=== PATIENT | male | born 1960 | race African-American/Black ===

== ENCOUNTER → 2023-02-18 11:18 | Outpatient (REF) | payer MEDICAID, SELFPAY ==
--- NOTE | 2023-02-18 11:28 | ECG_ITS ---
Test Reason : 251.81 Blood Pressure : / mmHG Vent. Rate : 074 BPM Atrial Rate : 074 BPM P-R Int : 180 ms QRS Dur : 088 ms QT Int : 372 ms P-R-T Axes : 059 046 064 degrees QTc Int : 412 ms Normal sinus rhythm Normal ECG No previous ECGs available Referred By: KONSTANTIN MORIN Electronically Signed By:SENIA MORSE
== END ==
LOC: HO.CARD 11:18
PROVIDERS: Visit Provider Nurse Practitioner Psychiatric/Mental Health
DX: Z79.899 Other long term (current) drug therapy (principal)
CPT/HCPCS: 93005

== ENCOUNTER 2024-01-26 13:32 | Emergency (ER) | payer MEDICAID, SELFPAY ==
--- NOTE | ~2024-01-26 | CT_ITS ---
EXAMINATION: CT ABDOMEN AND PELVIS WITHOUT CONTRAST CLINICAL INFORMATION: Questionable umbilical hernia COMPARISON: None available. TECHNIQUE: Multidetector volumetric imaging was performed from the superior aspect of the liver through the pubic symphysis. Sagittal and coronal reformatted images were obtained on the technologist's workstation. This CT examination was performed using dose optimization techniques as appropriate, variously including the following: *Automated exposure control *Adjustment of mA and/or kV according to patient size (this includes techniques or standardized protocols for targeted exams where dose is matched to indication/reason for exam; i.e. extremities or head) *Use of iterative reconstruction technique DLP: 270 mGy-cm FINDINGS: LUNG BASES: The visualized lung bases are unremarkable. LIVER, GALLBLADDER, AND BILIARY TREE: Segment 4A hepatic cyst measuring 9 mm. Gallbladder under distended. PANCREAS: Unremarkable. SPLEEN: Unremarkable. ADRENAL GLANDS: Unremarkable. KIDNEYS AND URETERS: The kidneys are normal in size, shape, and attenuation. No hydronephrosis, hydroureter, or calculi seen. No perinephric stranding. BLADDER: Unremarkable. GASTROINTESTINAL TRACT: Debris-filled gastric distention. No small bowel obstruction. Moderate to severe degree of colonic stool burden. ABDOMINAL WALL: Small fat-containing supraumbilical hernia measuring 1.8 x 0.7 x 2.2 cm. LYMPH NODES: Normal. VASCULAR: Aortoiliac calcifications. PELVIC VISCERA: Unremarkable. OSSEOUS STRUCTURES: Unremarkable. CT/CT abdomen pelvis wo IV con IMPRESSION: Supraumbilical fat-containing hernia measuring 1.8 x 0.7 x 2.2 cm. Fleischner guidelines were followed. Electronically signed by: Akhil Clark DO 01/26/2024 09:17 PM EDT
--- NOTE | ~2024-01-26 | CT_ITS ---
EXAMINATION: CT CERVICAL SPINE WITHOUT CONTRAST CLINICAL INFORMATION: Fall with head strike COMPARISON: None TECHNIQUE: Multidetector CT of the cervical spine was performed without intravenous contrast. Reformatted axial, coronal and sagittal images were reviewed. This CT examination was performed using dose optimization techniques as appropriate, variously including the following: *Automated exposure control *Adjustment of mA and/or kV according to patient size (this includes techniques or standardized protocols for targeted exams where dose is matched to indication/reason for exam; i.e. extremities or head) *Use of iterative reconstruction technique DLP: 1157 mGy-cm FINDINGS: There is approximately 5 mm anterolisthesis of C2 on C3 and 4 mm anterolisthesis of C3 on C4. Multiple additional areas of spondylosis is seen throughout the cervical spine to varying degrees. Multilevel endplate sclerosis and subchondral cystic changes predominantly from C4 to T1 related to degenerative changes. Multilevel uncovertebral head pressure and the resultant varying degrees of neural foraminal stenosis, which is worst at C4-5 and C5-6. No traumatic fracture of the cervical spine. There is no abnormal widening of the predental space, separation of the lateral masses of C1 or facet joint distraction. Paraseptal emphysema at the lung apices. CT/CT cervical spine wo IV con IMPRESSION: Approximately 5 mm anterolisthesis of C2 on C3 and 4 mm anterolisthesis of C3 on C4. Given the presence of spondylolisthesis at additional cervical levels, this is likely degenerative in etiology. Less likely to be traumatic, however ligamentous injury could present this way. No acute fractures are identified. If there is concern for ligamentous injury and/or instability on physical exam, recommend further evaluation with MRI cervical spine. Electronically signed by: Akhil Clark DO 01/26/2024 09:28 PM EDT
--- NOTE | ~2024-01-26 | CT_ITS ---
EXAMINATION: CT HEAD WITHOUT CONTRAST CLINICAL INFORMATION: Fall, right frontal head strike COMPARISON: None available. TECHNIQUE: Contiguous axial imaging was performed from the skull base to vertex without intravenous administration of contrast. This CT examination was performed using dose optimization techniques as appropriate, variously including the following: *Automated exposure control *Adjustment of mA and/or kV according to patient size (this includes techniques or standardized protocols for targeted exams where dose is matched to indication/reason for exam; i.e. extremities or head) *Use of iterative reconstruction technique DLP: CT mGy-cm FINDINGS: CT examination of the brain shows age-related involutional changes with prominence of the ventricles and sulci. Periventricular white matter hypodensities are evident, likely on the basis of chronic microvascular ischemic disease. No acute hemorrhage, mass effect or shift is evident. In the posterior fossa, the brainstem, cerebellum and fourth ventricle are unremarkable. The orbits and bony calvarium are intact. Mild right sphenoid and right frontal sinus mucosal thickening is noted. CT/CT head/brain wo IV con IMPRESSION: 1. Mild Age-related involutional changes and microvascular disease. 2. No acute hemorrhage, mass effect, shift or acute intracranial pathology. Electronically signed by: Roberto Mayo MD 01/26/2024 08:25 PM EDT
--- NOTE | ~2024-01-26 | XR_ITS ---
EXAMINATION: XR CHEST CLINICAL INFORMATION: Failure to thrive COMPARISON: None available. TECHNIQUE: 2 views of the chest were obtained. FINDINGS: The lungs are adequately expanded. No focal consolidation. No pleural effusions, edema or pneumothorax. The cardiac mediastinal silhouette is within normal limits. Diffuse osteopenia limiting evaluation of osseous structures. Lucency within the left upper quadrant likely correlating gaseous distention of the colon. XR/XR chest 2V IMPRESSION: No acute pulmonary disease. Electronically signed by: Dinesh Marquez MD 01/26/2024 04:54 PM EDT
[2024-01-26 13:51] VITALS: BP 114/75; PULSE 64; RESP 14; TEMP 36.2; O2SAT 99; BMI 16.1
--- NOTE | 2024-01-26 13:55 | ED.GENADULT ---
HPI - General Adult General Chief complaint: General Medical Stated complaint: Hernia, sinus infection Time Seen by Provider: 01/26/24 17:00 History of Present Illness ED Provider: Cecil VERMA narrative: The patient is a 63-year-old male with a history of chronic mental illness who lives at a [facility] home. 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 He is losing a lot of weight. He is falling. He has received most of his primary care through the [facility] in [place] but apparently his primary care doctor left and he has not yet been assigned a new 1. His patient case coordinator who was with him feels that his overall health is deteriorating and she felt that he needed to be assessed. The patient at the moment is denying any concerns. He denies headache, chest pain, shortness of breath, abdominal pain, nausea, vomiting. He indicates that sometimes he thinks he has a hernia around his umbilicus. No reported fever, sweats, chills. The medications that the patient has been taking or apparently amlodipine, tamsulosin, pantoprazole, methadone, quetiapine, lithium, venlafaxine, melatonin, buspirone, and nicotine patch. Last month on December 15 the patient was seen at [facility] following a fall. He had a CT scan of his cervical spine which showed a possible nondisplaced fracture of the inferior articulating facet of C2. He was seen by Neurosurgery and recommendation was for no surgical intervention. The patient was advised to wear an [place] collar. Apparently the patient has not been compliant with wearing the [place] collar because he does not like wearing it. The patient is here with the [facility] patient case coordinator. The patient case coordinator tells me that the patient seems to be having increased urinary frequency and she is worried that the patient might have a urinary tract infection. She also tells me that the patient seems to have very chronically running nose. Related Data Previous Rx's ?Medication ?Instructions ?Recorded cephalexin 500 mg capsule 500 mg PO BID #10 caps 01/26/24 Allergies Allergy/AdvReac Type Severity Reaction Status Date / Time No Known Allergies Allergy Verified 01/26/24 14:01 Review of Systems Review of Systems: Yes all other systems are reviewed and are negative PMFSH Social History Social History Smoked in Last 30 Days: No Use of substances other than those prescribed or required for medical reasons: No Advance Directives: No Advance Directives Information Provided: No Physical Exam ED Vital Signs: Vital Signs - 24 hr 01/26/24 13:51 01/26/24 16:00 01/26/24 18:00 Temperature 97.1 F 98 F 97.7 F Pulse Rate 64 58 59 Respiratory Rate 14 18 20 Blood Pressure 114/75 106/57 L 109/62 Pulse Oximetry 99 98 96 Oxygen Delivery Method Room Air Room Air Room Air 01/26/24 21:43 Temperature 97.7 F Pulse Rate 59 Respiratory Rate 20 Blood Pressure 109/62 Pulse Oximetry 96 Oxygen Delivery Method Room Air BMI result Body Mass Index 16.1 Const Other: The patient is a very slim 63-year-old male. He looks chronically ill. He is awake and alert. He seems to have an unusual demeanor but he does not seem obviously acutely ill. HENMT Other: Face is symmetrical. Mucous membranes are moist. Eyes Other: Pupils are round equal, conjunctivae are clear, extraocular movements are intact. Neck Other: The patient denies midline C-spine tenderness. He denies significant pain with moving his neck. Resp Other: Lungs are fairly clear bilaterally. No wheezes, no crackles. Cardio Rate: regular rate Rhythm: regular rhythm Heart sounds: S1 normal heart sound present and S2 normal heart sound present GI Other: The patient has a very slim abdomen. No significant tenderness. No significant umbilical hernia. Skin Other: Skin is dry and unremarkable. Neuro Other: The patient is awake and alert. He seems reasonably well oriented and fairly coherent. Cranial nerves seem intact. He moves his extremities with intact strength. His gait seems steady. Extrem Other: The patient has what seems to be some mild chronic edema to both lower legs. He has deformities to both of his great toes have varus deformities. Course Course Course Narrative: This is a Rapid Medical Examination (RME) performed by Xiao Colon PA-C in triage. Full HPI, ROS, assessment and treatment plan per primary provider in the Main ED. 63 yo male here for eval of multiple concerns. patient currently resides at living facility where his meds are administered however they do not provide any further medical care. he lives on 2nd floor and pool hall inspector feels as though he is a fall risk. reports significant decline in health over the last few months with difficulty establishing care with PCP. patient reports fall with right sided head strike 2 days ago with noted hematoma. pool hall inspector states patient has not been eating. admits to significant weight loss over the fast few months. she also notes a cognitive decline and is concerned it may be related to over medication. seen at [facility] today for methadone adjustments and was sent here for further eval. patient with known cervical fractures per pool hall inspector. supposed to be wearing neck brace however patient refuses. also endorses suspected umbilical hernia. reports hx of same requiring surgery. + frail and thin appearing. small hematoma noted to right forehead. no palpable skull fracture. alert and oriented. Plan: labs, UA, ct head/neck and abd/pelvis. will likely require case management Medications Administered Discontinued Medications Generic Name Dose Route Start Last Admin Trade Name Freq PRN Reason Stop Dose Admin Cephalexin HCl 500 mg 01/26/24 20:44 01/26/24 21:04 Cephalexin 500 Mg Capsule PO 01/26/24 20:45 500 mg ONCE ONE Administration Lactated Ringer's 1,000 mls @ 999 mls/hr 01/26/24 18:45 01/26/24 21:25 Lr IV 01/26/24 19:45 Infused .Q1H1M ANDRÉS Infusion Medical Decision Making Medical Decision Making [facility] Narrative: The patient is a chronically mentally ill 63-year-old who lives at a rest home. He is here with a behavioral health network ([facility]) patient case coordinator who was concerned that the patient seems to be having failure to thrive. The patient has lost a lot of weight recently. He seems cachectic. Additionally he has had increased urinary frequency. He also apparently has a lot of clear nasal discharge. He is on chronic methadone. Apparently his methadone dosage has recently been reduced because of his weight loss. Additionally the patient had possible C-spine fracture of the right articular facet of C2 diagnosed 1 month ago at [facility]. There surgeries recommendation was for conservative management with an [place] collar. The patient has not been wearing the [place] collar. The patient is apparently his own decision maker. The patient has unremarkable vital signs and does not seem acutely toxic. He is pleasant and he does not seem to have a thought disorder. I suspect he has the capacity to make his own medical decisions. Labs were done as part of an evaluation of his weight loss. His white count is 6.5, hemoglobin 10.3, platelet count 294, differential in his white count is normal. Metabolic panel shows a creatinine of 1.58 and a BUN of 37. I obtained records from [facility]. One month ago his creatinine is 1.05 in his BUN was 19. Given this rise in his BUN and creatinine over the last month the patient was given IV fluids and I advised hospitalization for a possible acute kidney injury. The patient expressed that he did not wish to be hospitalized over. The patient's urinalysis is consistent with a UTI. However based on the absence of a fever and given that he does not have an elevated white blood count and given that his CRP is undetectable I do not think he has a systemic UTI. He was started on a course of cephalexin. The patient's TSH is normal. The patient had had a head CT, cervical spine CT, and abdominal CT ordered at triage. His head CT showed some age-related involutional changes and microvascular disease but no acute findings. His abdominal CT showed a supraumbilical fat containing hernia and also showed findings consistent with some degree of constipation but no other acute findings. His cervical spine CT showed a 5 mm anterolisthesis of C2 on C3 and 4 mm anterolisthesis of C3 on C4. The reading goes on to say ?given the presence of spondylolisthesis at additional cervical levels this is likely degenerative in etiology. ? The report goes on? less likely to be traumatic, however ligamentous injury could present this way. No acute fractures are identified.? Chest x-ray is negative. TSH is normal. I had hoped to hospitalize the patient for his kidney injury but the patient does not wish to be hospitalized. I believe he has capacity to make his own medical decisions. The patient will therefore be discharged with a prescription for cephalexin 500 mg b.i.d. x5 days. Additionally his patient case coordinator tells me that she believes he has an appointment regarding his cervical spine injury with the clinic tomorrow. I therefore a uploaded his C-spine images to the trauma and neurosurgical drop boxes at [facility]. The patient has a apparently previously gotten his primary care through the [facility] in [place]. I have encouraged the patient and his patient case coordinator to try to reestablish a PCP at this clinic.. Lab Data 01/26/24 17:51 01/26/24 17:51 Labs: Lab Results 08/29/24 08/29/24 Range/Units 17:51 18:02 WBC 6.5 (4.8-10.8) X10*3/uL RBC 3.43 L (4.60-5.80) X10*6/uL Hgb 10.3 L (14.0-18.0) g/dl Hct 32.1 L (42.0-52.0) % MCV 93.6 (80.0-98.0) fL MCH 30.0 (27.0-33.0) pg MCHC 32.1 (31.0-36.0) g/dl RDW 15.8 (11.0-16.0) % Plt Count 294 (160-400) X10*3/uL MPV 9.0 L (9.4-12.4) fL Immature Gran % (Auto) 0.3 (0.0-0.4) % Neut % (Auto) 60.3 (45-73) % Lymph % (Auto) 29.6 (20-40) % Miller % (Auto) 8.3 (2-11) % Eos % (Auto) 0.9 (0-4) % Baso % (Auto) 0.6 (0-2) % Lymph # (Auto) 1.9 (1.2-4.9) X10*3/uL Miller # (Auto) 0.5 (0.1-1.2) X10*3/uL Eos # (Auto) 0.1 (0.0-0.4) X10*3/uL Baso # (Auto) 0.0 (0.0-0.2) X10*3/uL Abs Immat Gran (auto) 0.02 (0.00-0.03) X10*3/uL Absolute Neuts (auto) 3.9 (2.0-8.3) x10*3/uL Absolute Nucleated RBC 0.000 (0.0-0.012) X10*3/uL Nucleated RBC % (auto) 0.0 (0.0-0.2) /100WBC Sodium 137 (135-145) mmol/L Potassium 4.6 (3.3-5.1) mmol/L Chloride 105 (96-108) mmol/L Carbon Dioxide 27 (22-29) mmol/L Anion Gap 10 L (12-20) BUN 37 H (9-16) mg/dL Creatinine 1.58 H (0.5-1.4) mg/dL Estim Creat Clear Calc 30.9 Estimated GFR 45 Random Glucose 82 (60-115) mg/dL Calcium 9.4 (8.4-10.2) mg/dL Magnesium 2.2 (1.6-2.6) mg/dL Total Bilirubin 0.3 (0.0-1.0) mg/dL AST 23 (5-37) U/L ALT 23 (0-40) U/L Alkaline Phosphatase 116 (39-117) U/L C-Reactive Protein < 0.10 (< or = 0.50) mg/dL Total Protein 7.9 (6.5-8.0) g/dL Albumin 3.6 (3.5-5.0) g/dL Lipase 17 (8-78) U/L TSH 1.22 (0.32-4.0) uIU/mL Urine Color Yellow Urine Appearance Clear Urine pH 6.5 (5.0-9.0) Ur Specific [place] <= 1.005 (1.005-1.025) Urine Protein 30 (1+) H (Neg-Trace) mg/dL Urine Glucose (UA) Negative (Negative) mg/dL Urine Ketones Negative (Negative) mg/dL Urine Blood Moderate (2+) H (Negative) Urine Nitrite Negative (Negative) Ur Leukocyte Esterase Large (3+) H (Negative) Urine RBC 0-2 (0-2) /HPF Urine WBC >50 H (0-5) /HPF Ur Squamous Epith Cells 0-2 (0-2) /HPF Urine Bacteria None Seen (None Seen) Hyaline Casts 0-2 (0-2) /LPF Urine Opiates Screen Not Detected (Not Detect) Ur Buprenorphine Scrn Not Detected (Not Detect) ng/mL Ur Oxycodone Screen Not Detected (Not Detect) ng/mL Urine Methadone Screen Positive H (Not Detect) ng/mL Urine Fentanyl Screen Not Detected (Not Detect) Ur Barbiturates Screen Not Detected (Not Detect) Ur Phencyclidine Scrn Not Detected (Not Detect) Ur Amphetamines Screen Not Detected (Not Detect) U Benzodiazepines Scrn Not Detected (Not Detect) [place] 1.07 (0.60-1.20) mmol/L Urine Cocaine Screen Not Detected (Not Detect) U Marijuana (THC) Screen POSITIVE H (Not Detect) Ethyl Alcohol < 10 mg/dL Discharge Plan Discharge Clinical Impression: Dehydration, Urinary tract infection, Weight loss, Spondylolisthesis, cervical region Patient Disposition: Home, Self-Care Instructions: Urinary Tract Infection in Men (ED) Additional Instructions: Please try to increase your fluid intake. Your blood testing today suggest that you are dehydrated. You have a urinary tract infection. Please take the cephalexin prescribed 2 times a day. This should be taken approximately every 12 hours. Please contact the [facility] to see if you can reestablish yourself with a primary care doctor at that practice. Keep any appointment you may have with the [facility] Trauma service or the [facility] neurosurgery service to follow-up on your spinal neck injury. Also make sure you get all the elements of your bowel regiment to help with what i think is chronic constipation. Return to the emergency room if significantly worse. Prescriptions: New cephalexin 500 mg capsule 500 mg PO BID Qty: 10 0RF Referrals: [facility] [Provider Group] (Dehydration, UTI, weight loss) Discharge Date/Time: 01/26/24 21:47 Print Language: [place]
[2024-01-26 16:00] VITALS: BP 106/57; PULSE 58; RESP 18; TEMP 36.6; O2SAT 98
[2024-01-26 17:56] LABS: MANUAL DIFF FLAG NO
--- NOTE | 2024-01-26 17:58 | ECG_ITS ---
Test Reason : weakness Blood Pressure : / mmHG Vent. Rate : 068 BPM Atrial Rate : 068 BPM P-R Int : 144 ms QRS Dur : 076 ms QT Int : 434 ms P-R-T Axes : 056 041 070 degrees QTc Int : 461 ms Normal sinus rhythm Minimal voltage criteria for LVH, may be normal variant ( Sokolow-Beckford ) Septal infarct , age undetermined Abnormal ECG When compared with ECG of 18-FEB-2023 11:32, No significant change was found Referred By: Kvng Jacob Electronically Signed By:SENIA MORSE
[2024-01-26 18:00] VITALS: BP 109/62; PULSE 59; RESP 20; TEMP 36.5; O2SAT 96
[2024-01-26 18:12] LABS: Lithium 1.07 mmol/L (0.60-1.20)
[2024-01-26 18:14] LABS: Basophils Percent Auto 0.6 % (0-2); Eosinophils Absolute Auto 0.1 X10*3/uL (0.0-0.4); Eosinophils Percent Auto 0.9 % (0-4); Hematocrit 32.1 % (42.0-52.0); Hemoglobin 10.3 g/dl (14.0-18.0); Imm Gran Abs Auto 0.02 X10*3/uL (0.00-0.03); Imm Gran Pct Auto 0.3 % (0.0-0.4); Lymphocytes Absolute Auto 1.9 X10*3/uL (1.2-4.9); Lymphocytes Percent Auto 29.6 % (20-40); Mean Corpuscular HGB Conc 32.1 g/dl (31.0-36.0); Mean Corpuscular Volume 93.6 fL (80.0-98.0); Monocytes Absolute Auto 0.5 X10*3/uL (0.1-1.2); Monocytes Percent Auto 8.3 % (2-11); Neutrophils Absolute Auto 3.9 x10*3/uL (2.0-8.3); Neutrophils Percent Auto 60.3 % (45-73); Platelet Count 294 X10*3/uL (160-400); Red Blood Count 3.43 X10*6/uL (4.60-5.80); Red Cell Distribution Width 15.8 % (11.0-16.0); White Blood Count 6.5 X10*3/uL (4.8-10.8)
[2024-01-26 18:19] LABS: Ethanol < 10 mg/dL
[2024-01-26 18:20] LABS: Amphetamine Screen Urine Not Detected (Not Detect); Appearance Urine Clear; Barbiturates, Urine Not Detected (Not Detect); Benzodiazepines Screen Urine Not Detected (Not Detect); Buprenorphine Scr Not Detected (Not Detect); Cannabinoid Screen Urine POSITIVE (Not Detect); Cocaine Screen Urine Not Detected (Not Detect); Color Urine Yellow; Fentanyl, urine Not Detected (Not Detect); Glucose Urine UA Negative (Negative); Leukocyte Esterase Urine Large (3+) (Negative); Methadone Screen, Urine Positive (Not Detect); Nitrite Urine Negative (Negative); Opiate Screen Urine Not Detected (Not Detect); Oxycodone Screen Urine Not Detected (Not Detect); PH 6.5 (5.0-9.0); Phencyclidine Screen Urine Not Detected (Not Detect); Specific Gravity - Urine <= 1.005 (1.005-1.025); UMIC TRIGGER UACC YES; Urine Blood Moderate (2+) (Negative); Urine Ketones Negative (Negative); Urine Protein 30 (1+) mg/dL (Neg-Trace)
[2024-01-26 18:21] LABS: Alanine Aminotransferase 23 U/L (0-40); Albumin Level 3.6 g/dL (3.5-5.0); Alkaline Phosphatase 116 U/L (39-117); Anion Gap 10 (12-20); Aspartate Amino Transferase 23 U/L (5-37); Bilirubin Total 0.3 mg/dL (0.0-1.0); Blood Urea Nitrogen 37 mg/dL (9-16); Calcium 9.4 mg/dL (8.4-10.2); Carbon Dioxide 27 mmol/L (22-29); Chloride 105 mmol/L (96-108); Creatinine Clr Calc Pharmacy 30.9; Estimated Glomerular Filt Rate 45; Glucose Random 82 mg/dL (60-115); Lipase 17 U/L (8-78); Magnesium 2.2 mg/dL (1.6-2.6); Potassium 4.6 mmol/L (3.3-5.1); Sodium 137 mmol/L (135-145); Total Protein 7.9 g/dL (6.5-8.0)
[2024-01-26 19:02] LABS: C Reactive Protein < 0.10 mg/dL (< or = 0.50)
--- NOTE | 2024-01-26 19:06 | MHC.EDTECH ---
This Tech took over care as PCT @[id number]
[2024-01-26 19:10] LABS: Bacteria Urine None Seen (None Seen); Hyaline Casts Urine 0-2 /LPF (0-2); RBC Urine 0-2 /HPF (0-2); Squamous Epithelial Cell Urine 0-2 /HPF (0-2); UACC Culture Trigger YES; WBC Urine >50 /HPF (0-5)
--- NOTE | 2024-01-26 19:11 | PC.NURSE ---
patient is refusing IV line and fluids
[2024-01-26] MEDS: Lactated Ringers 1,000 ML 999 ML IV (19:58)
--- NOTE | 2024-01-26 20:43 | PC.NURSE ---
bladder scan 191. MD notified. Pt voided about 15 minutes before bladder scan
[2024-01-26] MEDS: cephALEXin 500 MG CAPSULE PO (21:04)
--- NOTE | 2024-01-26 21:25 | PC.NURSE ---
pt refused rest of iv fluids. pt asked that I take out IV line. fluids stopped and IV removed
[2024-01-26 21:43] VITALS: BP 109/62; PULSE 59; RESP 20; TEMP 36.5; O2SAT 96
[2024-01-26 22:20] LABS: Thyroid Stimulating Hormone 1.22 uIU/mL (0.32-4.0)
== END 2024-01-26 21:47 | disposition home or self-care (01) ==
PROVIDERS: Physician Assistant Medical; Emergency Provider Emergency Medicine
DX: S00.83XA Contusion of other part of head, initial encounter (principal); E86.0 Dehydration; N39.0 Urinary tract infection, site not specified; R63.4 Abnormal weight loss; M43.12 Spondylolisthesis, cervical region; R62.7 Adult failure to thrive; R94.31 Abnormal electrocardiogram [ECG] [EKG]; R11.0 Nausea; R51.9 Headache, unspecified; R07.89 Other chest pain; M54.2 Cervicalgia; R10.9 Unspecified abdominal pain; X58.XXXA Exposure to other specified factors, initial encounter; W19.XXXA Unspecified fall, initial encounter; Y93.89 Activity, other specified; Y92.89 Other specified places as the place of occurrence of the external cause; Y99.8 Other external cause status; Z79.899 Other long term (current) drug therapy
CPT/HCPCS: 36415; 51798; 70450; 71046; 72125; 74176; 80053; 80178; 80307; 81001; 83690; 83735; 84443; 85025; 86140; 87086; 93005; 96360; 99285; J7120

== ENCOUNTER → 2024-11-14 10:44 | Outpatient (REF) | payer MEDICAID, SELFPAY ==
--- NOTE | 2024-11-14 | ECG_ITS ---
Test Reason : Z79.899 Blood Pressure : */* mmHG Vent. Rate : 63 BPM Atrial Rate : 63 BPM P-R Int : 166 ms QRS Dur : 90 ms QT Int : 380 ms P-R-T Axes : 65 63 65 degrees QTcB Int : 388 ms Normal sinus rhythm Normal ECG When compared with ECG of 26-Jan-2024 18:07, QT has shortened Referred By: Coleen Roberto Electronically Signed By: Ruddy Mitchell
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
== END ==
LOC: HO.CARD 10:44
PROVIDERS: Visit Provider Nurse Practitioner Psychiatric/Mental Health
DX: Z79.899 Other long term (current) drug therapy (principal)
CPT/HCPCS: 93005

== ENCOUNTER → 2024-11-14 10:55 | Outpatient (BNV) | payer MEDICAID, SELFPAY | PROVIDERS: Visit Provider Internal Medicine Cardiovascular Disease | DX: Z79.899 Other long term (current) drug therapy (principal) | CPT/HCPCS: 93010 ==